=== PATIENT | male | born 1955 | race Two or more races ===

== ENCOUNTER 2021-03-02 11:30 | Emergency (ER) | payer MEDICARE, OTHER ==
[~2021-03-02] VITALS: Ht 182.9 cm; Wt 113.4 kg
[2021-03-02 11:32] VITALS: BP 110/56
[2021-03-02] MEDS ORDERED: ONDANSETRON HCL 4 MG/2 ML VIAL IV ONE (12:00)
[2021-03-02] MEDS ORDERED: ACETAMINOPHEN 325 MG TAB PO ONE (12:00)
[2021-03-02] MEDS ORDERED: DexAMETHasone SOD PHOS 10MG/1ML VIAL INJ IV ONE (12:00)
[2021-03-02 17:06] LABS: Hemoglobin 11.3 g/dL (13.5-17.5); White Blood Cell 3.5 10^3/uL (4.4-10.8)
[2021-03-02 17:11] LABS: Hematocrit 34.1 % (41.0-53.0); Mean Corpuscular Hemoglobin 32.3 pg (28.0-32.0); Mean Corpuscular Hgb Conc. 33.2 g/dL (32.0-36.0); Mean Corpuscular Volume 97.4 fL (80.0-100.0); Red Cell Distribution Width 15.2 % (11.8-14.3)
[2021-03-02 17:13] LABS: Basophils % (manual) 0 (0.0-2.0); Blast Cells 0; Eosinophils % (manual) 0 (0-7); Metamyelocytes % 0; Myelocytes % 0; Promyelocytes % 0; Reactive Lymphocytes 0
[2021-03-02 17:24] LABS: Albumin 2.5 g/dL (3.4-5.0); Calcium 8.5 mg/dL (8.5-10.1); Potassium 4.1 mmol/L (3.5-5.1)
[2021-03-02 17:25] LABS: INR 1.25 (0.9-1.15); Partial Thromboplastin Time 29.1 sec (23.6-33.0)
[2021-03-02 17:29] LABS: BUN/Creatinine Ratio 10.6; Bilirubin, Total 2.1 mg/dL (0.2-1.0); Total Protein 7.1 g/dL (6.4-8.2)
[2021-03-02 17:35] LABS: Band Neutrophils % (manual) 3; Lymphocytes % (manual) 14 (10.0-50.0); Monocytes % (manual) 14 (0-12)
[2021-03-02] MEDS ORDERED: LACTATED RINGER'S 1,000 ML IV ONE (18:00)
[2021-03-02] MEDS ORDERED: IOHEXOL 350 MG/ML 100ML IJ ONE (18:06)
[2021-03-02] MEDS ORDERED: HYDROcodone-ACET 5/325MG TAB PO PRN (22:00)
[2021-03-02] MEDS ORDERED: ACETAMINOPHEN 500 MG TAB PO PRN (22:00)
[2021-03-02] MEDS ORDERED: FUROSEMIDE 20 MG/2 ML VIAL IV ONE (22:00)
[2021-03-02] MEDS ORDERED: ONDANSETRON HCL 4 MG/2 ML VIAL IV PRN (22:00)
[2021-03-02] MEDS ORDERED: ENOXAPARIN SOD 40 MG/0.4 ML SYRINGE SC SCH (22:00)
[2021-03-02] MEDS ORDERED: BUDESONIDE (INHALATION) 180 MCG IH IN SCH (22:00)
[2021-03-02] MEDS ORDERED: SODIUM CHLOR 0.9% PF (SALINE LOCK) 10ML VIAL/SYR IV SCH (22:00)
[2021-03-02] MEDS ORDERED: DOCUSATE SOD 100 MG CAP PO PRN (22:00)
[2021-03-02] MEDS ORDERED: ALBUTEROL SULF HFA 90MCG INH 200DOSE IN PRN (22:00)
[2021-03-02] MEDS ORDERED: FAMOTIDINE (10MG/ML) 2ML VL IV SCH (22:00)
[2021-03-02] MEDS ORDERED: AZITHROMYCIN 500MG/ 250ML 250 ML IV SCH (23:30)
[2021-03-03] MEDS ORDERED: CHOLECALCIFEROL (VITD3) 2,000 UNIT CAP/TAB PO SCH (10:00)
[2021-03-03] MEDS ORDERED: MULTIPLE VITAMIN TAB PO SCH (10:00)
[2021-03-03] MEDS ORDERED: DexAMETHasone SOD PHOS 10MG/1ML VIAL INJ IV SCH (10:00)
[2021-03-03] MEDS ORDERED: FUROSEMIDE 20 MG/2 ML VIAL IV SCH (10:00)
[2021-03-03] MEDS ORDERED: ZINC SULFATE 220mg CAP or TAB PO SCH (10:00)
[2021-03-03] MEDS ORDERED: ASPirin 81 mg TAB PO SCH (10:00)
[2021-03-03] MEDS ORDERED: ASCORBIC ACID 1,000 MG TAB PO SCH (10:00)
== END 2021-03-02 22:10 | disposition left against medical advice (07) ==
LOC: ER 11:30
DX: U07.1 COVID-19 (principal); B34.9 Viral infection, unspecified; N17.9 Acute kidney failure, unspecified; R09.02 Hypoxemia; I11.0 Hypertensive heart disease with heart failure; I50.9 Heart failure, unspecified; Z90.49 Acquired absence of other specified parts of digestive tract
CPT/HCPCS: 36415; 71045; 71275; 80053; 82728; 83880; 84484; 85007; 85027; 85379; 85610; 85730; 86141; 87426; 93005; 99285; Q9967

== ENCOUNTER 2021-03-29 15:41 | Inpatient (IN) | payer BC, MEDICARE ==
[~2021-03-29] VITALS: Ht 172.7 cm; Wt 100.4 kg
[2021-03-29] MEDS ORDERED: FUROSEMIDE 40 MG/4 ML VIAL IV ONE (18:00)
[2021-03-29 18:13] LABS: Basophils # (auto) 0 10 ^3/uL (0-0.2); Basophils % (auto) 0.3 % (0.0-2.0); Eosinophils # (auto) 0 10 ^3/uL (0-0.8); Hematocrit 30.8 % (41.0-53.0); Hemoglobin 10.3 g/dL (13.5-17.5); Lymphocytes # (auto) 0.7 10 ^3/uL (0.4-5.4); Lymphocytes % (auto) 4.6 % (10.0-50.0); Mean Corpuscular Hemoglobin 32.9 pg (28.0-32.0); Mean Corpuscular Hgb Conc. 33.5 g/dL (32.0-36.0); Mean Corpuscular Volume 98.1 fL (80.0-100.0); Monocytes % (auto) 6.9 % (0.0-12.0); Neutrophils # (auto) 13.2 10 ^3/uL (1.6-8.6); Neutrophils % (auto) 88.2 % (37.0-80.0); Nucleated Red Blood Cells % 0.1 %; Red Blood Cells 3.14 10^6/uL (4.5-5.90); Red Cell Distribution Width 17.7 % (11.8-14.3)
[2021-03-29 18:20] LABS: INR 1.37 (0.9-1.15); Partial Thromboplastin Time 29.7 sec (23.6-33.0)
[2021-03-29 18:25] LABS: Albumin 2.3 g/dL (3.4-5.0); Anion Gap 9 (5-15); Blood Alcohol < 3.0 mg/dL (0-5); Blood Urea Nitrogen 20 mg/dL (7-18); Calcium 7.9 mg/dL (8.5-10.1); Carbon Dioxide 22 mmol/L (21-32); Chloride 109 mmol/L (98-107); Glucose 148 mg/dL (74-106); Potassium 4.1 mmol/L (3.5-5.1); Sodium 140 mmol/L (136-145)
[2021-03-29 18:28] LABS: Lactic Acid w/Reflex 4.2 mmol/L (0.4-2.0)
[2021-03-29 19:02] LABS: Alanine Aminotransferase 29 U/L (16-61); Alkaline Phosphatase 101 U/L (45-117); Aspartate Aminotransferase 51 U/L (15-37); BUN/Creatinine Ratio 13.9; Bilirubin, Total 3.8 mg/dL (0.2-1.0); GFR African American 63 mL/min; GFR Non-African American 52 mL/min; Total Protein 5.7 g/dL (6.4-8.2)
[2021-03-29 19:12] LABS: Urine Bacteria NONE SEEN /hpf (None Seen); Urine Blood 1+ /uL (Negative); Urine Specific Gravity 1.012 (1.001-1.035); Urine WBC 688 /hpf (0 - 3)
[2021-03-29 19:34] LABS: Amphetamine Screen, Urine POSITIVE (NEGATIVE); Barbiturate Scree,Urine NEGATIVE (NEGATIVE); Benzodiazephine Screen, Urine NEGATIVE (NEGATIVE); Cannabinoid Screen, Urine NEGATIVE (NEGATIVE); Cocaine Screen, Urine NEGATIVE (NEGATIVE); Opiate Scree,Urine NEGATIVE (NEGATIVE); Phencyclidine Screen, Urine NEGATIVE (NEGATIVE)
[2021-03-29] MEDS ORDERED: VANCOMYCIN PER PHARMACY 0 MG IV SCH (21:30)
[2021-03-29] MEDS ORDERED: cefTRIAXone 1GM/50ML D5W 50 ML IV ONE (21:30)
[2021-03-29] MEDS ORDERED: DOCUSATE SOD 100 MG CAP PO PRN (21:30)
[2021-03-29] MEDS ORDERED: ALBUMIN 25% 100 ML IV ONE (21:30)
[2021-03-29] MEDS ORDERED: ACETAMINOPHEN 325 MG TAB PO PRN (21:30)
[2021-03-29] MEDS ORDERED: VANCOMYCIN 1GM/250ML 250 ML IV ONE (22:30)
[2021-03-29] MEDS: SODIUM CHLOR 0.9% PF (SALINE LOCK) 10ML VIAL/SYR IV SCH (22:50)
[2021-03-29] MEDS: ASCORBIC ACID 500 MG TAB PO SCH (22:50)
[2021-03-29] MEDS: FAMOTIDINE (10MG/ML) 2ML VL IV SCH (22:50)
[2021-03-29] MEDS ORDERED: LORazepam 2MG/ML-1ML VIAL ONE (23:14)
[2021-03-29] MEDS ORDERED: MORPHINE SULFATE INJECTION 2 MG/ML SYRG IV PRN ×2 (23:15→23:45)
[2021-03-29] MEDS ORDERED: LORazepam 2MG/ML-1ML VIAL IV PRN (23:15)
[2021-03-29] MEDS ORDERED: NITROGLYCERIN 0.4 MG SL TAB SL PRN (23:45)
[2021-03-30] MEDS: MORPHINE SULFATE INJECTION 2 MG/ML SYRG IV PRN (01:30)
[2021-03-30] MEDS: LORazepam 2MG/ML-1ML VIAL IV PRN (02:04)
[2021-03-30] MEDS: HYDROmorphone HCL 2 MG/ML VL IV PRN (02:10)
[2021-03-30] MEDS ORDERED: ACETAMINOPHEN 650 MG RECT SUPP PR ONE (02:45)
[2021-03-30] MEDS: SODIUM CHLOR 0.9% PF (SALINE LOCK) 10ML VIAL/SYR IV SCH ×3 (06:06→23:20)
[2021-03-30 06:40] LABS: Basophils # (auto) 0 10 ^3/uL (0-0.2); Basophils % (auto) 0.2 % (0.0-2.0); Eosinophils # (auto) 0 10 ^3/uL (0-0.8); Hematocrit 30.2 % (41.0-53.0); Hemoglobin 10.1 g/dL (13.5-17.5); Lymphocytes # (auto) 0.8 10 ^3/uL (0.4-5.4); Lymphocytes % (auto) 6.5 % (10.0-50.0); Mean Corpuscular Hgb Conc. 33.3 g/dL (32.0-36.0); Monocytes # (auto) 0.7 10 ^3/uL (0-1.3); Monocytes % (auto) 5.9 % (0.0-12.0); Neutrophils # (auto) 10.6 10 ^3/uL (1.6-8.6); Neutrophils % (auto) 87.4 % (37.0-80.0); Red Blood Cells 3.05 10^6/uL (4.5-5.90); Red Cell Distribution Width 18.3 % (11.8-14.3); White Blood Cell 12.2 10^3/uL (4.4-10.8)
[2021-03-30 07:00] LABS: Potassium 3.4 mmol/L (3.5-5.1)
[2021-03-30 07:10] LABS: Albumin 2.3 g/dL (3.4-5.0); Bilirubin, Total 4.1 mg/dL (0.2-1.0); Calcium 7.8 mg/dL (8.5-10.1); Total Protein 5.9 g/dL (6.4-8.2)
[2021-03-30] MEDS ORDERED: ALBUMIN 25% 100 ML IV ONE ×2 (07:45→12:10)
[2021-03-30] MEDS: ZINC SULFATE 220mg CAP or TAB PO SCH (10:00)
[2021-03-30] MEDS ORDERED: FUROSEMIDE 40 MG/4 ML VIAL IV SCH (10:00)
[2021-03-30] MEDS: MULTIPLE VITAMIN TAB PO SCH (10:00)
[2021-03-30] MEDS: ASCORBIC ACID 500 MG TAB PO SCH ×2 (10:00→22:00)
[2021-03-30] MEDS: cefTRIAXone 1GM/50ML D5W 50 ML IV SCH (10:55)
[2021-03-30] MEDS ORDERED: NOREPINEPHRINE 8 MG/250ML KIT 250 ML IV ONE (14:01)
[2021-03-30] MEDS: NOREPINEPHRINE 8 MG/250ML KIT 250 ML IV SCH (14:10)
[2021-03-30] MEDS ORDERED: SODIUM CHLORIDE 0.9% 1,000 ML IV ONE (14:45)
[2021-03-30] MEDS ORDERED: VANCOMYCIN PER PHARMACY 0 MG IV SCH (14:45)
[2021-03-30] MEDS ORDERED: LACTULOSE 10g/15ml SOLN PR SCH (15:00)
[2021-03-30] MEDS: LACTULOSE 10g/15ml SOLN PR SCH (18:55)
[2021-03-30] MEDS: FAMOTIDINE (10MG/ML) 2ML VL IV SCH (23:21)
[2021-03-31] MEDS: VANCOMYCIN 1GM/250ML 250 ML IV SCH (00:20)
[2021-03-31] MEDS: LORazepam 2MG/ML-1ML VIAL IV PRN (02:49)
[2021-03-31] MEDS: ONDANSETRON HCL 4 MG/2 ML VIAL IV PRN (02:49)
[2021-03-31] MEDS: MORPHINE SULFATE INJECTION 2 MG/ML SYRG IV PRN (02:51)
[2021-03-31] MEDS: SODIUM CHLOR 0.9% PF (SALINE LOCK) 10ML VIAL/SYR IV SCH ×3 (06:07→22:20)
[2021-03-31] MEDS: LACTULOSE 10g/15ml SOLN PR SCH ×2 (06:07)
[2021-03-31 07:11] LABS: Potassium 3.8 mmol/L (3.5-5.1)
[2021-03-31 07:18] LABS: Albumin 2.5 g/dL (3.4-5.0); BUN/Creatinine Ratio 30.8; Bilirubin, Total 2.9 mg/dL (0.2-1.0); Calcium 7.8 mg/dL (8.5-10.1); Total Protein 5.6 g/dL (6.4-8.2)
[2021-03-31 07:39] LABS: Basophils # (auto) 0.1 10 ^3/uL (0-0.2); Basophils % (auto) 0.6 % (0.0-2.0); Eosinophils # (auto) 0.2 10 ^3/uL (0-0.8); Eosinophils % (auto) 1.8 % (0.0-7.0); Hematocrit 33.3 % (41.0-53.0); Hemoglobin 11.2 g/dL (13.5-17.5); Lymphocytes # (auto) 1.4 10 ^3/uL (0.4-5.4); Lymphocytes % (auto) 12.1 % (10.0-50.0); Mean Corpuscular Hemoglobin 33.5 pg (28.0-32.0); Mean Corpuscular Hgb Conc. 33.7 g/dL (32.0-36.0); Mean Corpuscular Volume 99.4 fL (80.0-100.0); Monocytes # (auto) 1.2 10 ^3/uL (0-1.3); Monocytes % (auto) 10.3 % (0.0-12.0); Neutrophils # (auto) 8.9 10 ^3/uL (1.6-8.6); Neutrophils % (auto) 75.2 % (37.0-80.0); Nucleated Red Blood Cells % 0.1 %; Red Blood Cells 3.35 10^6/uL (4.5-5.90); Red Cell Distribution Width 18.2 % (11.8-14.3); White Blood Cell 11.9 10^3/uL (4.4-10.8)
[2021-03-31] MEDS: cefTRIAXone 1GM/50ML D5W 50 ML IV SCH (09:48)
[2021-03-31] MEDS: ASCORBIC ACID 500 MG TAB PO SCH (10:00)
[2021-03-31] MEDS: ZINC SULFATE 220mg CAP or TAB PO SCH (10:00)
[2021-03-31] MEDS: MULTIPLE VITAMIN TAB PO SCH (10:00)
[2021-03-31] MEDS: NOREPINEPHRINE 8 MG/250ML KIT 250 ML IV SCH (15:24)
[2021-03-31] MEDS: LACTULOSE 20Gm/30ML SOLN PO SCH ×2 (15:51→22:20)
[2021-03-31] MEDS: FAMOTIDINE (10MG/ML) 2ML VL IV SCH (22:20)
[2021-04-01] MEDS: MORPHINE SULFATE INJECTION 2 MG/ML SYRG IV PRN (01:00)
[2021-04-01] MEDS: ONDANSETRON HCL 4 MG/2 ML VIAL IV PRN (01:00)
[2021-04-01] MEDS: LACTULOSE 20Gm/30ML SOLN PO SCH ×3 (05:57→23:25)
[2021-04-01] MEDS: SODIUM CHLOR 0.9% PF (SALINE LOCK) 10ML VIAL/SYR IV SCH ×3 (05:57→23:33)
[2021-04-01 09:44] LABS: Hematocrit 35.4 % (41.0-53.0); Hemoglobin 11.8 g/dL (13.5-17.5); Mean Corpuscular Hemoglobin 33.1 pg (28.0-32.0); Mean Corpuscular Hgb Conc. 33.2 g/dL (32.0-36.0); Mean Corpuscular Volume 99.7 fL (80.0-100.0); Red Blood Cells 3.55 10^6/uL (4.5-5.90); Red Cell Distribution Width 18.1 % (11.8-14.3); White Blood Cell 6.9 10^3/uL (4.4-10.8)
[2021-04-01 09:47] LABS: Albumin 2.8 g/dL (3.4-5.0); Basophils % (manual) 0 (0.0-2.0); Blast Cells 0; Calcium 8.3 mg/dL (8.5-10.1); Metamyelocytes % 0; Myelocytes % 0; Potassium 3.5 mmol/L (3.5-5.1); Promyelocytes % 0; Reactive Lymphocytes 0
[2021-04-01 09:51] LABS: BUN/Creatinine Ratio 24.2; Bilirubin, Total 2.9 mg/dL (0.2-1.0); Total Protein 6.6 g/dL (6.4-8.2)
[2021-04-01] MEDS: cefTRIAXone 1GM/50ML D5W 50 ML IV SCH (10:06)
[2021-04-01] MEDS: FAMOTIDINE (10MG/ML) 2ML VL IV SCH (10:06)
[2021-04-01 10:21] LABS: Band Neutrophils % (manual) 2; Eosinophils % (manual) 1 (0-7); Lymphocytes % (manual) 14 (10.0-50.0); Monocytes % (manual) 10 (0-12)
[2021-04-01 11:46] LABS: Hepatitis A Total Antibody Negative (Negative)
[2021-04-01 13:00] LABS: Hepatitis B Surface Antibody Negative (Negative)
[2021-04-01] MEDS: NOREPINEPHRINE 8 MG/250ML KIT 250 ML IV SCH (13:45)
[2021-04-01 14:11] LABS: Hepatitis C Antibody Positive (Negative)
[2021-04-01] MEDS: LORazepam 2MG/ML-1ML VIAL IV PRN (14:25)
[2021-04-01 17:00] VITALS: BP 138/80
[2021-04-01 20:00] VITALS: BP 140/69
[2021-04-01] MEDS: VANCOMYCIN 1GM/250ML 250 ML IV SCH ×2 (23:31)
[2021-04-02] MEDS: HYDROcodone-ACET 5/325MG TAB PO PRN ×3 (03:27→23:48)
[2021-04-02 05:48] LABS: Basophils # (auto) 0 10 ^3/uL (0-0.2); Basophils % (auto) 0.4 % (0.0-2.0); Eosinophils # (auto) 0.2 10 ^3/uL (0-0.8); Eosinophils % (auto) 3.5 % (0.0-7.0); Hematocrit 30.4 % (41.0-53.0); Hemoglobin 10.4 g/dL (13.5-17.5); Mean Corpuscular Hemoglobin 33.8 pg (28.0-32.0); Mean Corpuscular Hgb Conc. 34.2 g/dL (32.0-36.0); Mean Corpuscular Volume 98.7 fL (80.0-100.0); Monocytes # (auto) 0.7 10 ^3/uL (0-1.3); Monocytes % (auto) 12.9 % (0.0-12.0); Neutrophils # (auto) 3.5 10 ^3/uL (1.6-8.6); Neutrophils % (auto) 65.2 % (37.0-80.0); Nucleated Red Blood Cells % 0.1 %; Red Blood Cells 3.08 10^6/uL (4.5-5.90); Red Cell Distribution Width 18.1 % (11.8-14.3); White Blood Cell 5.4 10^3/uL (4.4-10.8)
[2021-04-02 06:00] VITALS: BP 132/72
[2021-04-02 06:06] LABS: Potassium 3.8 mmol/L (3.5-5.1)
[2021-04-02] MEDS: SODIUM CHLOR 0.9% PF (SALINE LOCK) 10ML VIAL/SYR IV SCH ×3 (06:10→22:00)
[2021-04-02] MEDS: LACTULOSE 20Gm/30ML SOLN PO SCH ×3 (06:10→22:00)
[2021-04-02 06:11] LABS: Albumin 2.3 g/dL (3.4-5.0); BUN/Creatinine Ratio 21.2
[2021-04-02 06:14] LABS: Bilirubin, Total 2.5 mg/dL (0.2-1.0); Total Protein 5.7 g/dL (6.4-8.2)
[2021-04-02] MEDS: cefTRIAXone 1GM/50ML D5W 50 ML IV SCH (08:19)
[2021-04-02 09:14] VITALS: BP 148/88
[2021-04-02 13:01] VITALS: BP 116/58
[2021-04-02] MEDS ORDERED: LISI-716 PO (13:04)
[2021-04-02] MEDS ORDERED: OXYC20TA69 PO (13:04)
[2021-04-02] MEDS ORDERED: FURO40TA4 PO (13:04)
[2021-04-02] MEDS ORDERED: SPIR50TA5 PO (13:04)
[2021-04-02] MEDS ORDERED: DIAZ10TA3 PO (13:04)
[2021-04-02] MEDS ORDERED: POTA10TA32 PO (13:04)
[2021-04-02] MEDS: VANCOMYCIN 1GM/250ML 250 ML IV SCH ×2 (14:55→23:45)
[2021-04-02 17:04] VITALS: BP 145/71
[2021-04-02 22:13] VITALS: BP 131/64
[2021-04-03 06:06] LABS: Basophils # (auto) 0 10 ^3/uL (0-0.2); Basophils % (auto) 0.6 % (0.0-2.0); Eosinophils # (auto) 0.3 10 ^3/uL (0-0.8); Eosinophils % (auto) 4.3 % (0.0-7.0); Hematocrit 33.1 % (41.0-53.0); Hemoglobin 11.2 g/dL (13.5-17.5); Lymphocytes # (auto) 1.2 10 ^3/uL (0.4-5.4); Lymphocytes % (auto) 19.4 % (10.0-50.0); Mean Corpuscular Hemoglobin 33.5 pg (28.0-32.0); Mean Corpuscular Hgb Conc. 33.8 g/dL (32.0-36.0); Mean Corpuscular Volume 99.2 fL (80.0-100.0); Monocytes # (auto) 0.8 10 ^3/uL (0-1.3); Monocytes % (auto) 13.1 % (0.0-12.0); Neutrophils # (auto) 3.8 10 ^3/uL (1.6-8.6); Neutrophils % (auto) 62.6 % (37.0-80.0); Red Blood Cells 3.33 10^6/uL (4.5-5.90); Red Cell Distribution Width 18.3 % (11.8-14.3); White Blood Cell 6.1 10^3/uL (4.4-10.8)
[2021-04-03 06:37] LABS: Albumin 2.2 g/dL (3.4-5.0); BUN/Creatinine Ratio 18.8; Calcium 7.8 mg/dL (8.5-10.1); Potassium 4.1 mmol/L (3.5-5.1)
[2021-04-03 06:40] LABS: Bilirubin, Total 1.9 mg/dL (0.2-1.0); Total Protein 5.6 g/dL (6.4-8.2)
[2021-04-03] MEDS: HYDROcodone-ACET 5/325MG TAB PO PRN ×2 (06:41→11:18)
[2021-04-03] MEDS: LACTULOSE 20Gm/30ML SOLN PO SCH ×3 (06:43→22:13)
[2021-04-03] MEDS: SODIUM CHLOR 0.9% PF (SALINE LOCK) 10ML VIAL/SYR IV SCH ×3 (06:44→22:11)
[2021-04-03] MEDS: cefTRIAXone 1GM/50ML D5W 50 ML IV SCH (08:43)
[2021-04-03] MEDS: VANCOMYCIN 1GM/250ML 250 ML IV SCH ×2 (11:43→15:00)
[2021-04-03 12:44] LABS: INR 1.37 (0.9-1.15); Partial Thromboplastin Time 29.7 sec (23.6-33.0)
[2021-04-03 13:00] VITALS: BP 130/69
[2021-04-03] MEDS ORDERED: GADOTERATE MEG 10 MMOL/20ml INJ (0.5MMOL/ml) IV ONE (14:40)
[2021-04-03 16:49] VITALS: BP 119/66
[2021-04-03] MEDS: HYDROmorphone HCL 2 MG/ML VL IV PRN ×2 (17:27→22:23)
[2021-04-03 20:00] VITALS: BP 117/57
[2021-04-03 21:52] VITALS: BP 129/70
[2021-04-04 05:01] VITALS: BP 129/65
[2021-04-04] MEDS: HYDROmorphone HCL 2 MG/ML VL IV PRN ×4 (05:02→13:34)
[2021-04-04] MEDS: VANCOMYCIN 1GM/250ML 250 ML IV SCH ×2 (05:04→14:16)
[2021-04-04 05:43] LABS: Basophils # (auto) 0 10 ^3/uL (0-0.2); Basophils % (auto) 0.3 % (0.0-2.0); Eosinophils # (auto) 0.3 10 ^3/uL (0-0.8); Eosinophils % (auto) 4.4 % (0.0-7.0); Hematocrit 31.4 % (41.0-53.0); Hemoglobin 10.6 g/dL (13.5-17.5); Lymphocytes # (auto) 1.6 10 ^3/uL (0.4-5.4); Lymphocytes % (auto) 22.5 % (10.0-50.0); Mean Corpuscular Hemoglobin 33.7 pg (28.0-32.0); Mean Corpuscular Hgb Conc. 33.9 g/dL (32.0-36.0); Mean Corpuscular Volume 99.5 fL (80.0-100.0); Monocytes # (auto) 0.8 10 ^3/uL (0-1.3); Monocytes % (auto) 10.9 % (0.0-12.0); Neutrophils # (auto) 4.4 10 ^3/uL (1.6-8.6); Neutrophils % (auto) 61.9 % (37.0-80.0); Nucleated Red Blood Cells % 0.1 %; Red Blood Cells 3.15 10^6/uL (4.5-5.90); Red Cell Distribution Width 18.2 % (11.8-14.3); White Blood Cell 7.1 10^3/uL (4.4-10.8)
[2021-04-04 05:56] LABS: Potassium 4.2 mmol/L (3.5-5.1)
[2021-04-04 06:04] LABS: Albumin 2.2 g/dL (3.4-5.0); BUN/Creatinine Ratio 22.7; Bilirubin, Total 1.8 mg/dL (0.2-1.0); Calcium 7.8 mg/dL (8.5-10.1); Total Protein 5.7 g/dL (6.4-8.2)
[2021-04-04] MEDS: SODIUM CHLOR 0.9% PF (SALINE LOCK) 10ML VIAL/SYR IV SCH ×2 (06:07→14:16)
[2021-04-04] MEDS: LACTULOSE 20Gm/30ML SOLN PO SCH ×2 (06:08→14:00)
[2021-04-04 08:00] VITALS: BP 117/57
[2021-04-04 09:26] VITALS: BP 131/68
[2021-04-04] MEDS ORDERED: PANTOPRAZOLE 40 MG TAB PO SCH (10:00)
[2021-04-04] MEDS: cefTRIAXone 1GM/50ML D5W 50 ML IV SCH (10:07)
[2021-04-04 12:52] VITALS: BP 123/66
[2021-04-04] MEDS ORDERED: FURO1TAB31 PO (13:57)
[2021-04-04] MEDS ORDERED: SPIR50TA2 PO (13:57)
[2021-04-04] MEDS ORDERED: LISI-716 PO (13:57)
[2021-04-04] MEDS ORDERED: PANT40TA2 PO (13:57)
[2021-04-04] MEDS ORDERED: DOXY-286 PO (13:57)
[2021-04-04] MEDS ORDERED: LACT10SO3 PO (14:02)
[2021-04-04 17:23] VITALS: BP 140/78
[2021-04-04 18:47] VITALS: BP 102/49
[2021-04-04] MEDS: HYDROcodone-ACET 5/325MG TAB PO PRN (19:00)
== END 2021-04-04 19:16 | disposition home or self-care (01) | DRG 871 ==
LOC: EDBD 15:41 → ER 15:41 → OVERFLOW 23:41 → CENTRAL 04-01 16:00
PROVIDERS: ADMIT Nurse Practitioner Family; ATTEND Internal Medicine Geriatric Medicine
DX: A41.9 Sepsis, unspecified organism (principal); R65.21 Severe sepsis with septic shock; J96.01 Acute respiratory failure with hypoxia; K72.00 Acute and subacute hepatic failure without coma; G93.41 Metabolic encephalopathy; N39.0 Urinary tract infection, site not specified; I47.2 Ventricular tachycardia; N17.9 Acute kidney failure, unspecified; C22.0 Liver cell carcinoma; L03.116 Cellulitis of left lower limb; E88.09 Other disorders of plasma-protein metabolism, not elsewhere classified; K74.60 Unspecified cirrhosis of liver; Z53.20 Procedure and treatment not carried out because of patient's decision for unspecified reasons; Z20.822 Contact with and (suspected) exposure to COVID-19; F15.90 Other stimulant use, unspecified, uncomplicated; B19.20 Unspecified viral hepatitis C without hepatic coma; E66.9 Obesity, unspecified; Z68.33 Body mass index [BMI] 33.0-33.9, adult; Z90.49 Acquired absence of other specified parts of digestive tract; R16.0 Hepatomegaly, not elsewhere classified; I10 Essential (primary) hypertension
CPT/HCPCS: 36415; 70450; 71045; 74183; 76705; 80053; 80202; 80307; 80320; 81001; 82105; 82140; 82378; 82962; 83605; 83880; 84484; 85007; 85025; 85027; 85610; 85730; 86704; 86706; 86708; 86803; 87040; 87077; 87086; 87088; 87186; 87340; 87426; 93005; 93306; 93970; 93971; 96365; 96367; 96368; 96375; 97110; 97116; 97163; 97530; 99291; G0378; J0696; J2405; J3490; P9047

== ENCOUNTER 2021-05-27 15:41 | Inpatient (IN) | payer BC, MEDICARE ==
[~2021-05-27] VITALS: Ht 188 cm; Wt 99.4 kg
[~2021-05-27 15:41] MED LIST: DOXY-286 PO; FURO1TAB31 PO; LACT10SO3 PO; LISI-716 PO; PANT40TA2 PO; SPIR50TA2 PO
[2021-05-27] MEDS ORDERED: ASPirin 81 mg TAB PO ONE (16:00)
[2021-05-27] MEDS ORDERED: MORPHINE SULFATE 4 MG/ML SYR/VIAL IV ONE (16:00)
[2021-05-27] MEDS ORDERED: ONDANSETRON HCL 4 MG/2 ML VIAL IV ONE (16:00)
[2021-05-27 16:57] LABS: Basophils # (auto) 0 10 ^3/uL (0-0.2); Basophils % (auto) 0.2 % (0.0-2.0); Eosinophils # (auto) 0.1 10 ^3/uL (0-0.8); Eosinophils % (auto) 1.1 % (0.0-7.0); Hematocrit 34.8 % (41.0-53.0); Hemoglobin 11.8 g/dL (13.5-17.5); Lymphocytes # (auto) 0.9 10 ^3/uL (0.4-5.4); Lymphocytes % (auto) 19.7 % (10.0-50.0); Mean Corpuscular Hemoglobin 32.8 pg (28.0-32.0); Mean Corpuscular Hgb Conc. 33.8 g/dL (32.0-36.0); Mean Corpuscular Volume 97.3 fL (80.0-100.0); Monocytes # (auto) 0.5 10 ^3/uL (0-1.3); Monocytes % (auto) 12.4 % (0.0-12.0); Neutrophils # (auto) 2.9 10 ^3/uL (1.6-8.6); Neutrophils % (auto) 66.6 % (37.0-80.0); Nucleated Red Blood Cells % 0.1 %; Red Blood Cells 3.58 10^6/uL (4.5-5.90); Red Cell Distribution Width 14.2 % (11.8-14.3); White Blood Cell 4.4 10^3/uL (4.4-10.8)
[2021-05-27 17:34] LABS: Albumin 2.3 g/dL (3.4-5.0); BUN/Creatinine Ratio 13.9; Calcium 8.3 mg/dL (8.5-10.1); Magnesium 1.9 mg/dL (1.6-2.6); Potassium 3.7 mmol/L (3.5-5.1)
[2021-05-27 17:38] LABS: Bilirubin, Total 2.2 mg/dL (0.2-1.0); Total Protein 5.9 g/dL (6.4-8.2)
[2021-05-27 18:31] LABS: Urine Bacteria NONE SEEN /hpf (None Seen); Urine Blood Negative /uL (Negative); Urine Specific Gravity 1.013 (1.001-1.035); Urine WBC 3 /hpf (0 - 3)
[2021-05-27] MEDS ORDERED: FUROSEMIDE 40 MG/4 ML VIAL IV ONE (19:00)
[2021-05-27] MEDS ORDERED: cloNIDine HCL 0.1 MG TAB PO PRN (21:00)
[2021-05-27] MEDS ORDERED: ALBUTEROL SULF 2.5 MG/0.5ML(0.5%) NEB SOLN NEB PRN (21:00)
[2021-05-27] MEDS ORDERED: MORPHINE SULFATE INJECTION 2 MG/ML SYRG IV PRN (21:00)
[2021-05-27] MEDS ORDERED: NITROGLYCERIN 0.4 MG SL TAB SL PRN (21:00)
[2021-05-27] MEDS ORDERED: ONDANSETRON HCL 4 MG/2 ML VIAL IV PRN (21:00)
[2021-05-27] MEDS: LACTULOSE 20Gm/30ML SOLN PO SCH (22:18)
[2021-05-27 22:32] VITALS: BP 160/92
[2021-05-27] MEDS: HYDROcodone-ACET 5/325MG TAB PO PRN (23:12)
[2021-05-28 00:01] LABS: INR 1.29 (0.9-1.15); Partial Thromboplastin Time 26.5 sec (23.6-33.0)
[2021-05-28] MEDS: TEMAZEPAM 15 MG CAP PO PRN ×2 (01:26→01:28)
[2021-05-28 03:10] VITALS: BP 159/78
[2021-05-28 05:00] VITALS: BP 141/87
[2021-05-28 05:18] LABS: Basophils # (auto) 0 10 ^3/uL (0-0.2); Basophils % (auto) 0.5 % (0.0-2.0); Eosinophils # (auto) 0.1 10 ^3/uL (0-0.8); Eosinophils % (auto) 2.3 % (0.0-7.0); Hematocrit 33.7 % (41.0-53.0); Hemoglobin 11.4 g/dL (13.5-17.5); Lymphocytes # (auto) 1.4 10 ^3/uL (0.4-5.4); Lymphocytes % (auto) 22.7 % (10.0-50.0); Mean Corpuscular Hemoglobin 32.9 pg (28.0-32.0); Mean Corpuscular Hgb Conc. 33.9 g/dL (32.0-36.0); Monocytes # (auto) 0.6 10 ^3/uL (0-1.3); Monocytes % (auto) 9.7 % (0.0-12.0); Neutrophils # (auto) 3.9 10 ^3/uL (1.6-8.6); Neutrophils % (auto) 64.8 % (37.0-80.0); Nucleated Red Blood Cells % 0.1 %; Red Blood Cells 3.47 10^6/uL (4.5-5.90); Red Cell Distribution Width 14.1 % (11.8-14.3)
[2021-05-28 05:47] LABS: Potassium 3.5 mmol/L (3.5-5.1)
[2021-05-28 05:54] LABS: Albumin 2.3 g/dL (3.4-5.0); BUN/Creatinine Ratio 16.7; Bilirubin, Total 2.2 mg/dL (0.2-1.0); Calcium 8.5 mg/dL (8.5-10.1); Total Protein 5.7 g/dL (6.4-8.2)
[2021-05-28] MEDS ORDERED: FUROSEMIDE 20 MG/2 ML VIAL IV SCH (06:00)
[2021-05-28 07:40] VITALS: BP 148/81
[2021-05-28] MEDS: HYDROcodone-ACET 5/325MG TAB PO PRN ×2 (07:48→16:12)
[2021-05-28] MEDS ORDERED: ENOXAPARIN SOD 40 MG/0.4 ML SYRINGE SC SCH (10:00)
[2021-05-28] MEDS: LISINOPRIL 10 MG TAB PO SCH (10:01)
[2021-05-28] MEDS: ASPirin 81 mg TAB PO SCH (10:01)
[2021-05-28] MEDS: SPIRONOLACTONE 25 MG TAB PO SCH (10:01)
[2021-05-28] MEDS: LACTULOSE 20Gm/30ML SOLN PO SCH ×2 (10:01→21:24)
[2021-05-28] MEDS: PANTOPRAZOLE 40 MG TAB PO SCH (10:01)
[2021-05-28 11:44] VITALS: BP 140/76
[2021-05-28 14:35] LABS: Alcohol, Urine < 3.0 mg/dL (0-10); Amphetamine Screen, Urine NEGATIVE (NEGATIVE); Barbiturate Scree,Urine NEGATIVE (NEGATIVE); Benzodiazephine Screen, Urine POSITIVE (NEGATIVE); Cannabinoid Screen, Urine NEGATIVE (NEGATIVE); Cocaine Screen, Urine NEGATIVE (NEGATIVE); Opiate Scree,Urine NEGATIVE (NEGATIVE); Phencyclidine Screen, Urine NEGATIVE (NEGATIVE)
[2021-05-28 17:16] VITALS: BP 146/75
[2021-05-28] MEDS: oxyCODONE ER 20 MG TAB PO SCH (21:24)
[2021-05-28 22:00] VITALS: BP 129/69
[2021-05-29] MEDS: HYDROcodone-ACET 5/325MG TAB PO PRN (04:53)
[2021-05-29 05:00] VITALS: BP 104/61
[2021-05-29] MEDS ORDERED: ADENOSINE 83 MG in GIVE UN-DILUTED 0 ML IV STA (07:42)
[2021-05-29 08:00] VITALS: BP 94/59
[2021-05-29 08:14] VITALS: BP 107/61
[2021-05-29 09:02] VITALS: BP 94/59
[2021-05-29] MEDS: ASPirin 81 mg TAB PO SCH (09:42)
[2021-05-29] MEDS: LACTULOSE 20Gm/30ML SOLN PO SCH (09:42)
[2021-05-29] MEDS: SPIRONOLACTONE 25 MG TAB PO SCH (09:44)
[2021-05-29] MEDS: PANTOPRAZOLE 40 MG TAB PO SCH (09:45)
[2021-05-29] MEDS: oxyCODONE ER 20 MG TAB PO SCH (09:45)
[2021-05-29] MEDS: LISINOPRIL 10 MG TAB PO SCH (09:46)
[2021-05-29] MEDS ORDERED: FUROSEMIDE 40 MG TAB PO SCH (10:00)
[2021-05-29 11:51] VITALS: BP 94/59
[2021-05-29 14:28] VITALS: BP 104/54
== END 2021-05-29 16:00 | disposition home or self-care (01) | DRG 302 ==
LOC: ER 15:41 → TELE 20:49 → TELE-CENTR 23:39
PROVIDERS: ADMIT Nurse Practitioner; ATTEND Internal Medicine
DX: I25.10 Atherosclerotic heart disease of native coronary artery without angina pectoris (principal); E43 Unspecified severe protein-calorie malnutrition; I50.33 Acute on chronic diastolic (congestive) heart failure; I11.0 Hypertensive heart disease with heart failure; K74.60 Unspecified cirrhosis of liver; E78.5 Hyperlipidemia, unspecified; B19.20 Unspecified viral hepatitis C without hepatic coma; G89.29 Other chronic pain; Z20.822 Contact with and (suspected) exposure to COVID-19; Z90.49 Acquired absence of other specified parts of digestive tract; Z68.28 Body mass index [BMI] 28.0-28.9, adult
CPT/HCPCS: 36415; 71045; 78452; 80053; 80307; 81001; 82140; 83735; 83880; 84484; 85025; 85379; 85610; 85730; 93005; 93017; 96374; 96375; G0378; J0153; J2405

== ENCOUNTER 2021-06-06 18:29 | Inpatient (IN) | payer MEDICARE ==
[~2021-06-06] VITALS: Ht 182.9 cm; Wt 97.0 kg
[2021-06-06 20:11] LABS: Basophils # (auto) 0.1 10 ^3/uL (0-0.2); Eosinophils # (auto) 0.2 10 ^3/uL (0-0.8); Eosinophils % (auto) 3.7 % (0.0-7.0); Hematocrit 35.3 % (41.0-53.0); Lymphocytes # (auto) 1.7 10 ^3/uL (0.4-5.4); Lymphocytes % (auto) 25.9 % (10.0-50.0); Mean Corpuscular Hemoglobin 32.5 pg (28.0-32.0); Mean Corpuscular Hgb Conc. 33.9 g/dL (32.0-36.0); Monocytes # (auto) 0.8 10 ^3/uL (0-1.3); Monocytes % (auto) 12.6 % (0.0-12.0); Neutrophils # (auto) 3.7 10 ^3/uL (1.6-8.6); Neutrophils % (auto) 56.8 % (37.0-80.0); Red Blood Cells 3.68 10^6/uL (4.5-5.90); Red Cell Distribution Width 14.4 % (11.8-14.3); White Blood Cell 6.5 10^3/uL (4.4-10.8)
[2021-06-06 20:17] LABS: Albumin 2.7 g/dL (3.4-5.0); Anion Gap 9 (5-15); Blood Urea Nitrogen 18 mg/dL (7-18); Calcium 8.5 mg/dL (8.5-10.1); Carbon Dioxide 23 mmol/L (21-32); Chloride 108 mmol/L (98-107); Glucose 117 mg/dL (74-106); Sodium 140 mmol/L (136-145)
[2021-06-06 20:19] LABS: Alanine Aminotransferase 31 U/L (16-61); Aspartate Aminotransferase 62 U/L (15-37); BUN/Creatinine Ratio 16.1; GFR African American 85 mL/min; GFR Non-African American 70 mL/min
[2021-06-06 20:22] LABS: Alkaline Phosphatase 101 U/L (45-117); Bilirubin, Total 2.2 mg/dL (0.2-1.0); Total Protein 6.8 g/dL (6.4-8.2)
[2021-06-06] MEDS ORDERED: DexAMETHasone SOD PHOS 10MG/1ML VIAL INJ IV ONE (20:30)
[2021-06-06] MEDS ORDERED: LACTULOSE 20Gm/30ML SOLN PO ONE (20:30)
[2021-06-06] MEDS: ASPirin 325 MG TAB PO ONE ×2 (20:30→21:11)
[2021-06-06 21:18] LABS: Urine Bacteria FEW /hpf (None Seen); Urine Blood Negative /uL (Negative); Urine Specific Gravity 1.012 (1.001-1.035); Urine WBC 59 /hpf (0 - 3)
[2021-06-06] MEDS ORDERED: ACETAMINOPHEN 325 MG TAB PO PRN (22:15)
[2021-06-06] MEDS ORDERED: MORPHINE SULFATE INJECTION 2 MG/ML SYRG IV PRN (22:15)
[2021-06-06] MEDS: LACTULOSE 20Gm/30ML SOLN PO SCH (22:15)
[2021-06-06] MEDS ORDERED: NITROGLYCERIN 0.4 MG SL TAB SL PRN (22:15)
[2021-06-06] MEDS ORDERED: ONDANSETRON HCL 4 MG/2 ML VIAL IV PRN (22:15)
[2021-06-06] MEDS ORDERED: cefTRIAXone 1GM/50ML D5W 50 ML IV ONE (22:15)
[2021-06-07 03:53] VITALS: BP 144/70
[2021-06-07 05:00] VITALS: BP 116/62
[2021-06-07] MEDS ORDERED: DIAZ2TAB PO (05:10)
[2021-06-07] MEDS ORDERED: ASPITAB2 OR (05:10)
[2021-06-07] MEDS ORDERED: OXY20CRT PO (05:10)
[2021-06-07] MEDS ORDERED: POTA10TA51 PO (05:10)
[2021-06-07] MEDS ORDERED: HYDROcodone-ACET 5/325MG TAB PO PRN (06:30)
[2021-06-07 06:34] LABS: Albumin 2.3 g/dL (3.4-5.0); BUN/Creatinine Ratio 19.1; Bilirubin, Total 1.2 mg/dL (0.2-1.0); Calcium 8.4 mg/dL (8.5-10.1); Total Protein 5.9 g/dL (6.4-8.2)
[2021-06-07 07:37] LABS: Basophils # (auto) 0 10 ^3/uL (0-0.2); Basophils % (auto) 0.2 % (0.0-2.0); Eosinophils # (auto) 0 10 ^3/uL (0-0.8); Eosinophils % (auto) 0.1 % (0.0-7.0); Hematocrit 33.9 % (41.0-53.0); Hemoglobin 11.3 g/dL (13.5-17.5); Lymphocytes # (auto) 0.4 10 ^3/uL (0.4-5.4); Lymphocytes % (auto) 16.7 % (10.0-50.0); Mean Corpuscular Hemoglobin 32.7 pg (28.0-32.0); Mean Corpuscular Hgb Conc. 33.2 g/dL (32.0-36.0); Mean Corpuscular Volume 98.5 fL (80.0-100.0); Monocytes # (auto) 0.1 10 ^3/uL (0-1.3); Neutrophils # (auto) 1.7 10 ^3/uL (1.6-8.6); Nucleated Red Blood Cells % 0.1 %; Red Blood Cells 3.44 10^6/uL (4.5-5.90); Red Cell Distribution Width 14.4 % (11.8-14.3); White Blood Cell 2.1 10^3/uL (4.4-10.8)
[2021-06-07 08:44] VITALS: BP 131/73
[2021-06-07] MEDS ORDERED: FUROSEMIDE 40 MG TAB PO SCH (10:00)
[2021-06-07] MEDS ORDERED: ENOXAPARIN SOD 40 MG/0.4 ML SYRINGE SC SCH (10:00)
[2021-06-07] MEDS: cefTRIAXone 1GM/50ML D5W 50 ML IV SCH (10:01)
[2021-06-07] MEDS: PANTOPRAZOLE 40 MG TAB PO SCH (10:02)
[2021-06-07] MEDS: LACTULOSE 20Gm/30ML SOLN PO SCH ×2 (10:02→21:46)
[2021-06-07] MEDS: SPIRONOLACTONE 25 MG TAB PO SCH (10:02)
[2021-06-07] MEDS: ASPirin 81 mg TAB PO SCH (10:02)
[2021-06-07] MEDS: LISINOPRIL 10 MG TAB PO SCH (10:03)
[2021-06-07] MEDS ORDERED: traMADol HCL 50 MG TAB PO PRN (11:00)
[2021-06-07 12:52] VITALS: BP 134/67
[2021-06-07 16:34] VITALS: BP 128/62
[2021-06-07] MEDS: ATORVASTATIN 20 MG TAB PO SCH (21:46)
[2021-06-07 22:00] VITALS: BP 148/76
[2021-06-08] VITALS (7 sets, daily range): BP systolic 101–131; BP diastolic 45–73
[2021-06-08 06:42] LABS: BUN/Creatinine Ratio 17.6; Calcium 8.3 mg/dL (8.5-10.1)
[2021-06-08] MEDS ORDERED: InsuLIN REG 1unit/0.01ml Soln (100units/ml) SC ONE (07:15)
[2021-06-08] MEDS: cefTRIAXone 1GM/50ML D5W 50 ML IV SCH (08:49)
[2021-06-08] MEDS: SPIRONOLACTONE 25 MG TAB PO SCH (09:22)
[2021-06-08] MEDS: LACTULOSE 20Gm/30ML SOLN PO SCH ×2 (09:22→21:48)
[2021-06-08] MEDS: ASPirin 81 mg TAB PO SCH (09:22)
[2021-06-08] MEDS: PANTOPRAZOLE 40 MG TAB PO SCH (09:23)
[2021-06-08] MEDS: LISINOPRIL 10 MG TAB PO SCH (09:23)
[2021-06-08] MEDS: FUROSEMIDE 20 MG TAB PO SCH (09:23)
[2021-06-08] MEDS ORDERED: VANCOMYCIN PER PHARMACY 0 MG IV SCH (12:00)
[2021-06-08] MEDS ORDERED: DEXTROSE (50%) 50ML SYRG IV PRN (12:00)
[2021-06-08] MEDS ORDERED: LORazepam 2MG/ML-1ML VIAL IV ONE (12:00)
[2021-06-08] MEDS: ACCU-CHEK COMFORT CURVE STRIP VI SCH ×3 (12:33→21:49)
[2021-06-08] MEDS: InsuLIN REG 1unit/0.01ml Soln (100units/ml) SC SCH ×3 (12:40→21:55)
[2021-06-08] MEDS ORDERED: VANCOMYCIN 1GM/250ML 250 ML IV ONE (14:15)
[2021-06-08] MEDS: VANCOMYCIN 1GM/250ML 250 ML IV SCH ×2 (14:58→16:22)
[2021-06-08] MEDS: MUPIROCIN 2% OINT 15gm or 22gm EACHNOSTRI SCH (21:48)
[2021-06-08] MEDS: ATORVASTATIN 20 MG TAB PO SCH (21:48)
[2021-06-09 05:00] VITALS: BP 107/63
[2021-06-09] MEDS: VANCOMYCIN 1GM/250ML 250 ML IV SCH ×3 (06:14→17:47)
[2021-06-09] MEDS: ACCU-CHEK COMFORT CURVE STRIP VI SCH ×4 (06:44→22:40)
[2021-06-09] MEDS: InsuLIN REG 1unit/0.01ml Soln (100units/ml) SC SCH ×4 (06:45→22:42)
[2021-06-09 07:16] LABS: Basophils # (auto) 0 10 ^3/uL (0-0.2); Basophils % (auto) 0.4 % (0.0-2.0); Eosinophils # (auto) 0.1 10 ^3/uL (0-0.8); Eosinophils % (auto) 2.1 % (0.0-7.0); Hematocrit 29.4 % (41.0-53.0); Hemoglobin 10.3 g/dL (13.5-17.5); Lymphocytes # (auto) 0.8 10 ^3/uL (0.4-5.4); Mean Corpuscular Hemoglobin 33.7 pg (28.0-32.0); Mean Corpuscular Hgb Conc. 35.1 g/dL (32.0-36.0); Mean Corpuscular Volume 95.9 fL (80.0-100.0); Monocytes # (auto) 0.5 10 ^3/uL (0-1.3); Monocytes % (auto) 12.6 % (0.0-12.0); Neutrophils # (auto) 2.4 10 ^3/uL (1.6-8.6); Neutrophils % (auto) 62.9 % (37.0-80.0); Nucleated Red Blood Cells % 0.1 %; Red Blood Cells 3.07 10^6/uL (4.5-5.90); Red Cell Distribution Width 14.3 % (11.8-14.3); White Blood Cell 3.7 10^3/uL (4.4-10.8)
[2021-06-09 07:24] LABS: BUN/Creatinine Ratio 18.1; Calcium 8.5 mg/dL (8.5-10.1); INR 1.34 (0.9-1.15); Partial Thromboplastin Time 28.8 sec (23.6-33.0); Potassium 4.3 mmol/L (3.5-5.1)
[2021-06-09 08:12] VITALS: BP 118/55
[2021-06-09] MEDS: cefTRIAXone 1GM/50ML D5W 50 ML IV SCH (08:32)
[2021-06-09] MEDS: MUPIROCIN 2% OINT 15gm or 22gm EACHNOSTRI SCH ×2 (09:36→22:39)
[2021-06-09] MEDS: PANTOPRAZOLE 40 MG TAB PO SCH (09:36)
[2021-06-09] MEDS: LACTULOSE 20Gm/30ML SOLN PO SCH ×2 (09:36→22:40)
[2021-06-09] MEDS: SPIRONOLACTONE 25 MG TAB PO SCH (09:36)
[2021-06-09] MEDS: FUROSEMIDE 20 MG TAB PO SCH (09:37)
[2021-06-09] MEDS: LISINOPRIL 10 MG TAB PO SCH (09:37)
[2021-06-09 12:43] VITALS: BP 94/44
[2021-06-09 16:12] VITALS: BP 98/52
[2021-06-09 22:00] VITALS: BP 110/59
[2021-06-09] MEDS: ATORVASTATIN 20 MG TAB PO SCH (22:40)
[2021-06-10 05:00] VITALS: BP 107/38
[2021-06-10 05:23] LABS: Basophils # (auto) 0 10 ^3/uL (0-0.2); Basophils % (auto) 0.7 % (0.0-2.0); Eosinophils # (auto) 0.2 10 ^3/uL (0-0.8); Hematocrit 31.9 % (41.0-53.0); Lymphocytes # (auto) 1.3 10 ^3/uL (0.4-5.4); Lymphocytes % (auto) 24.1 % (10.0-50.0); Mean Corpuscular Hgb Conc. 34.6 g/dL (32.0-36.0); Mean Corpuscular Volume 95.4 fL (80.0-100.0); Monocytes # (auto) 0.8 10 ^3/uL (0-1.3); Monocytes % (auto) 14.4 % (0.0-12.0); Neutrophils % (auto) 56.8 % (37.0-80.0); Red Blood Cells 3.34 10^6/uL (4.5-5.90); Red Cell Distribution Width 14.2 % (11.8-14.3); White Blood Cell 5.3 10^3/uL (4.4-10.8)
[2021-06-10 05:40] LABS: BUN/Creatinine Ratio 18.8; Potassium 4.4 mmol/L (3.5-5.1)
[2021-06-10] MEDS: InsuLIN REG 1unit/0.01ml Soln (100units/ml) SC SCH ×4 (07:00→21:58)
[2021-06-10] MEDS: VANCOMYCIN 1GM/250ML 250 ML IV SCH (07:45)
[2021-06-10] MEDS: ACCU-CHEK COMFORT CURVE STRIP VI SCH ×4 (07:45→21:57)
[2021-06-10 08:00] VITALS: BP 110/41
[2021-06-10] MEDS: cefTRIAXone 1GM/50ML D5W 50 ML IV SCH (09:16)
[2021-06-10] MEDS: LACTULOSE 20Gm/30ML SOLN PO SCH ×3 (09:16→23:57)
[2021-06-10] MEDS: LISINOPRIL 10 MG TAB PO SCH (09:17)
[2021-06-10] MEDS: PANTOPRAZOLE 40 MG TAB PO SCH (09:17)
[2021-06-10] MEDS: SPIRONOLACTONE 25 MG TAB PO SCH (09:19)
[2021-06-10] MEDS: FUROSEMIDE 20 MG TAB PO SCH (09:19)
[2021-06-10] MEDS: MUPIROCIN 2% OINT 15gm or 22gm EACHNOSTRI SCH ×2 (09:20→21:56)
[2021-06-10 12:00] VITALS: BP 109/54
[2021-06-10] MEDS: ceFAZolin 1GM/50ML 50 ML IV SCH ×2 (14:29→21:57)
[2021-06-10 16:00] VITALS: BP 111/51
[2021-06-10] MEDS: ATORVASTATIN 20 MG TAB PO SCH (21:57)
[2021-06-10 22:00] VITALS: BP 101/50
[2021-06-11 04:49] VITALS: BP 104/50
[2021-06-11] MEDS: ACCU-CHEK COMFORT CURVE STRIP VI SCH (05:35)
[2021-06-11] MEDS: InsuLIN REG 1unit/0.01ml Soln (100units/ml) SC SCH (05:35)
[2021-06-11] MEDS: ceFAZolin 1GM/50ML 50 ML IV SCH (05:35)
[2021-06-11 07:27] LABS: Potassium 4.3 mmol/L (3.5-5.1)
[2021-06-11 07:32] LABS: BUN/Creatinine Ratio 27.2; Calcium 8.1 mg/dL (8.5-10.1)
[2021-06-11 08:54] VITALS: BP 123/63
[2021-06-11] MEDS ORDERED: VANCOMYCIN 1GM/250ML 250 ML IV SCH (10:00)
[2021-06-11] MEDS: MUPIROCIN 2% OINT 15gm or 22gm EACHNOSTRI SCH (10:42)
[2021-06-11] MEDS: SPIRONOLACTONE 25 MG TAB PO SCH (10:42)
[2021-06-11] MEDS: LACTULOSE 20Gm/30ML SOLN PO SCH (10:43)
[2021-06-11] MEDS ORDERED: LEVO500T31 PO (11:09)
[2021-06-11 12:11] VITALS: BP 110/52
[2021-06-11 13:00] VITALS: BP 122/56
== END 2021-06-11 13:47 | disposition left against medical advice (07) | DRG 91 ==
LOC: EDBD 18:29 → ER 18:31 → TELE 22:07 → TELE-EAST 23:55
PROVIDERS: ADMIT Nurse Practitioner; ATTEND Internal Medicine
DX: G92.8 Other toxic encephalopathy (principal); E43 Unspecified severe protein-calorie malnutrition; N39.0 Urinary tract infection, site not specified; K72.90 Hepatic failure, unspecified without coma; B19.20 Unspecified viral hepatitis C without hepatic coma; D69.6 Thrombocytopenia, unspecified; G89.29 Other chronic pain; Z20.822 Contact with and (suspected) exposure to COVID-19; L03.031 Cellulitis of right toe; L97.519 Non-pressure chronic ulcer of other part of right foot with unspecified severity; I73.9 Peripheral vascular disease, unspecified; Z53.21 Procedure and treatment not carried out due to patient leaving prior to being seen by health care provider; B95.8 Unspecified staphylococcus as the cause of diseases classified elsewhere; E78.5 Hyperlipidemia, unspecified; I50.9 Heart failure, unspecified; I11.0 Hypertensive heart disease with heart failure; K70.30 Alcoholic cirrhosis of liver without ascites; Z68.27 Body mass index [BMI] 27.0-27.9, adult; Z82.3 Family history of stroke; Z82.49 Family history of ischemic heart disease and other diseases of the circulatory system; Z90.49 Acquired absence of other specified parts of digestive tract
CPT/HCPCS: 36415; 70450; 70551; 71045; 73718; 80048; 80053; 80202; 81001; 82140; 82962; 83036; 84484; 85025; 85610; 85730; 87077; 87081; 87186; 87205; 93005; 93925; 96365; 96375; 99291; G0378; J0690; J0696; J1100; J1815